=== PATIENT | male | born 1970 | race Caucasian/White ===

== ENCOUNTER → 2019-09-01 | Outpatient (CLI) | payer MEDICARE, OTHER ==
[~2019-09-01] MED LIST: FURO40 PO; HYDR25TA PO; LISI-662 PO; METO25 PO
== END | disposition home or self-care (01) ==
LOC: RADPV 11:28
PROVIDERS: ATTEND Podiatrist Foot & Ankle Surgery
DX: L97.529 Non-pressure chronic ulcer of other part of left foot with unspecified severity (principal); M19.072 Primary osteoarthritis, left ankle and foot; M77.32 Calcaneal spur, left foot; E11.9 Type 2 diabetes mellitus without complications

== ENCOUNTER → 2019-09-11 | Outpatient (CLI) | payer MEDICARE, OTHER | END | disposition home or self-care (01) | LOC: RADPV 09:13 | PROVIDERS: ATTEND Podiatrist Foot & Ankle Surgery | DX: I82.402 Acute embolism and thrombosis of unspecified deep veins of left lower extremity (principal); R60.0 Localized edema | CPT/HCPCS: 93971 ==

== ENCOUNTER → 2019-10-01 | Outpatient (CLI) | payer MEDICARE, OTHER ==
[2019-10-01 11:53] LABS: BASOPHILS % (AUTO) 0.6 % (0.0-2.0); EOSINOPHILS % (AUTO) 2.5 % (1.0-6.0); HEMATOCRIT 29.9 % (41-53); LYMPHOCYTES # (AUTO) 1.6 K/uL (1.0-4.8); LYMPHOCYTES % (AUTO) 14.7 % (22.0-44.0); MEAN CORPUSCULAR HEMOGLOBIN 28.7 pg (26.0-34.0); MEAN CORPUSCULAR HGB CONC 33.5 G/dL (31.0-37.0); MEAN CORPUSCULAR VOLUME 86 fL (80-100); MONOCYTES # (AUTO) 0.9 K/uL (0.1-1.0); MONOCYTES % (AUTO) 7.9 % (2.0-9.0); NEUTROPHILS % (AUTO) 74.3 % (40.0-70.0); PLATELET COUNT (AUTO) 202 K/uL (150-450); RED BLOOD CELL COUNT(AUTO) 3.49 MIL/uL (4.50-5.90); RED CELL DISTRIBUTION WIDTH 14.3 % (11.5-14.5)
[2019-10-01 13:36] LABS: ERYTHROCYTE SEDIMENTATION RATE 73 MM/HR (0-15)
== END | disposition home or self-care (01) ==
LOC: LABPV 10:22
PROVIDERS: ATTEND Podiatrist Foot & Ankle Surgery
DX: E11.40 Type 2 diabetes mellitus with diabetic neuropathy, unspecified (principal); L97.523 Non-pressure chronic ulcer of other part of left foot with necrosis of muscle
CPT/HCPCS: 85651

== ENCOUNTER → 2019-10-14 | Outpatient (CLI) | payer MEDICARE, OTHER ==
[~2019-10-14] MED LIST changes: +ALPR-340 PO; +AMLO10TA7 PO; +CALC0.25 PO; +CALC667C PO; +CHLO25TA3 PO; +FURO80 PO; +HYDR-1475 PO; +METO50 PO; +NIFE90TA49 PO; +ONDA-104 PO; +[UNRECOGNIZED DRUG - CODE] PO
== END | disposition home or self-care (01) ==
LOC: LABPV 11:03
PROVIDERS: ATTEND Internal Medicine Nephrology
DX: N18.5 Chronic kidney disease, stage 5 (principal); I51.7 Cardiomegaly

== ENCOUNTER 2019-11-17 05:53 | Day surgery (SDC) | payer MEDICARE, OTHER ==
[~2019-11-17] VITALS: Ht 180.3 cm; Wt 129.5 kg
[~2019-11-17 05:53] MED LIST changes: -ALPR-340 PO; -AMLO10TA7 PO; -CALC0.25 PO; -CALC667C PO; -CHLO25TA3 PO; +CYCLOPENTOLATE HCL 2% 2 ML OPHTHALMIC SOLUTION ONE; +DICLOFENAC SODIUM 0.1% 2.5 ML OPHTHALMIC SOLUTION ONE; -FURO80 PO; -HYDR-1475 PO; -METO50 PO; +MOXIFLOXACIN HCL 0.5% 3 ML OPHTHALMIC SOLUTION ONE; -NIFE90TA49 PO; -ONDA-104 PO; +PHENYLEPHRINE HCL 2.5% 2 ML OPHTHALMIC SOLUTION ONE; +RINGERS SOLUTION,LACTATED 0 ML IV ONE; +SODIUM CHLORIDE 0.9% 1,000 ML ONE; +TETRACAINE HCL/PF 0.5% 4 ML OPHTHALMIC SOLUTION ONE; -[UNRECOGNIZED DRUG - CODE] PO
[2019-11-17] MEDS ORDERED: ONDANSETRON HCL 4 MG/2 ML VIAL IVP ONE (05:54)
[2019-11-17] MEDS ORDERED: LIDOCAINE 1% 10 ML VIAL IM ONE (05:54)
[2019-11-17] MEDS ORDERED: 0.9% SODIUM CHLORIDE 10 ML VIAL IVP ONE (05:54)
[2019-11-17] MEDS ORDERED: MIDAZOLAM HCL 2 MG/2 ML VIAL IVP ONE (05:54)
[2019-11-17] MEDS ORDERED: SUCCINYLCHOLINE CHLORIDE 20 MG/ML 10 ML VIAL IVP ONE (05:54)
[2019-11-17] MEDS ORDERED: PROPOFOL 1% 20 ML VIAL IVP ONE (05:54)
[2019-11-17] MEDS ORDERED: FentaNYL CITRATE-PF 100 MCG/2 ML VIAL IVP ONE (05:54)
[2019-11-17] MEDS ORDERED: SODIUM CHLORIDE 0.9% 1,000 ML IV ONE (06:00)
[2019-11-17 06:12] LABS: BASOPHILS % (AUTO) 0.9 % (0.0-2.0); EOSINOPHILS % (AUTO) 1.7 % (1.0-6.0); HEMATOCRIT 31.5 % (41-53); HEMOGLOBIN 10.3 g/dL (13.5-17.5); LYMPHOCYTES # (AUTO) 1.7 K/uL (1.0-4.8); LYMPHOCYTES % (AUTO) 15.3 % (22.0-44.0); MEAN CORPUSCULAR HEMOGLOBIN 27.7 pg (26.0-34.0); MEAN CORPUSCULAR HGB CONC 32.7 G/dL (31.0-37.0); MEAN CORPUSCULAR VOLUME 85 fL (80-100); MONOCYTES # (AUTO) 0.8 K/uL (0.1-1.0); MONOCYTES % (AUTO) 7.3 % (2.0-9.0); NEUTROPHILS # (AUTO) 8.4 K/uL (1.8-7.7); NEUTROPHILS % (AUTO) 74.8 % (40.0-70.0); PLATELET COUNT (AUTO) 252 K/uL (150-450); RED BLOOD CELL COUNT(AUTO) 3.72 MIL/uL (4.50-5.90); RED CELL DISTRIBUTION WIDTH 15.1 % (11.5-14.5)
[2019-11-17 06:24] LABS: PROTHROMBIN TIME 10.5 SEC (9.4-11.6)
[2019-11-17 06:27] LABS: CALCIUM, TOTAL 8.4 mg/dL (8.8-10.5); CREATININE 5.81 mg/dL (0.60-1.30); POTASSIUM 4.3 mmol/L (3.5-5.1)
[2019-11-17] MEDS ORDERED: AMLO10TA7 PO (06:50)
[2019-11-17] MEDS ORDERED: LIDOCAINE/PF 1% 30 ML VIAL ONE (06:54)
[2019-11-17] MEDS ORDERED: BUPIVACAINE HCL/PF 0.5% 30 ML VIAL ONE (06:54)
[2019-11-17] MEDS ORDERED: GELATIN SPONGE,ABSORBABLE 100 MM TP ONE (07:36)
[2019-11-17] MEDS ORDERED: THROMBIN, BOVINE 20000 UNITS/VIAL POWDER TP ONE (07:37)
[2019-11-17] MEDS ORDERED: HYDROmorphone 2 MG/ML SYRINGE IVP PRN (07:45)
[2019-11-17] MEDS ORDERED: FentaNYL CITRATE-PF 100 MCG/2 ML VIAL IVP PRN (07:45)
[2019-11-17] MEDS ORDERED: MEPERIDINE-PF 25 MG/ML VIAL IVP PRN (07:45)
[2019-11-17] MEDS ORDERED: OXYGEN THERAPY IH SCH (08:00)
[2019-11-17] MEDS ORDERED: OxyCODONE HCL/ACETAMINOPHEN 5-325 MG TABLET PO ONE (08:00)
[2019-12-12] MEDS ORDERED: HYDR-1475 PO (13:16)
[2019-12-12] MEDS ORDERED: CALC667C PO (13:16)
[2019-12-12] MEDS ORDERED: ONDA-104 PO (13:16)
[2019-12-12] MEDS ORDERED: CALC0.25 PO (13:16)
[2019-12-12] MEDS ORDERED: METO50 PO (13:16)
[2019-12-12] MEDS ORDERED: [UNRECOGNIZED DRUG - CODE] PO (13:16)
[2019-12-12] MEDS ORDERED: FURO80 PO (13:16)
[2019-12-12] MEDS ORDERED: CHLO25TA3 PO (13:16)
[2019-12-12] MEDS ORDERED: ALPR-340 PO (13:16)
[2019-12-12] MEDS ORDERED: NIFE90TA49 PO (15:04)
[2019-12-17] MEDS ORDERED: LEVO500T2 PO (12:19)
[2019-12-17] MEDS ORDERED: B CO1CAP6 PO (12:20)
[2019-12-17] MEDS ORDERED: ACET-3207 PO (12:22)
== END 2019-11-17 09:20 | disposition home or self-care (01) ==
LOC: SURGERY 05:53
PROVIDERS: ATTEND Podiatrist Foot & Ankle Surgery
DX: E11.621 Type 2 diabetes mellitus with foot ulcer (principal); L97.523 Non-pressure chronic ulcer of other part of left foot with necrosis of muscle; D17.24 Benign lipomatous neoplasm of skin and subcutaneous tissue of left leg; I10 Essential (primary) hypertension; F41.9 Anxiety disorder, unspecified; F17.210 Nicotine dependence, cigarettes, uncomplicated; Z98.890 Other specified postprocedural states; Z72.89 Other problems related to lifestyle; Z99.2 Dependence on renal dialysis; Z79.01 Long term (current) use of anticoagulants
CPT/HCPCS: 28039; 36415; 80048; 85025; 85610; 85730; 87070; 87077; 87186; 87205; 88304; 93005; J0330; J0690; J2250; J2405; J2704; J3010; J3490 ×3; J7030; J7120

== ENCOUNTER → 2019-12-04 | Outpatient (CLI) | payer MEDICARE, OTHER ==
[~2019-12-04] MED LIST changes: +ACET-3207 PO; +ALPR-340 PO; +AMLO10TA7 PO; +B CO1CAP6 PO; +CALC0.25 PO; +CALC667C PO; +CHLO25TA3 PO; -CYCLOPENTOLATE HCL 2% 2 ML OPHTHALMIC SOLUTION ONE; -DICLOFENAC SODIUM 0.1% 2.5 ML OPHTHALMIC SOLUTION ONE; +FURO80 PO; +HYDR-1475 PO; +LEVO500T2 PO; -LISI-662 PO; +METO50 PO; -MOXIFLOXACIN HCL 0.5% 3 ML OPHTHALMIC SOLUTION ONE; +NIFE90TA49 PO; +ONDA-104 PO; -PHENYLEPHRINE HCL 2.5% 2 ML OPHTHALMIC SOLUTION ONE; -RINGERS SOLUTION,LACTATED 0 ML IV ONE; -SODIUM CHLORIDE 0.9% 1,000 ML ONE; -TETRACAINE HCL/PF 0.5% 4 ML OPHTHALMIC SOLUTION ONE; +[UNRECOGNIZED DRUG - CODE] PO
[2019-12-04 13:10] LABS: EOSINOPHILS % (AUTO) 1.5 % (1.0-6.0); HEMATOCRIT 34.7 % (41-53); HEMOGLOBIN 11.4 g/dL (13.5-17.5); LYMPHOCYTES # (AUTO) 2.1 K/uL (1.0-4.8); MEAN CORPUSCULAR HEMOGLOBIN 27.7 pg (26.0-34.0); MEAN CORPUSCULAR HGB CONC 32.7 G/dL (31.0-37.0); MEAN CORPUSCULAR VOLUME 85 fL (80-100); MONOCYTES # (AUTO) 0.8 K/uL (0.1-1.0); MONOCYTES % (AUTO) 7.6 % (2.0-9.0); NEUTROPHILS # (AUTO) 7.2 K/uL (1.8-7.7); NEUTROPHILS % (AUTO) 69.9 % (40.0-70.0); PLATELET COUNT (AUTO) 317 K/uL (150-450); RED BLOOD CELL COUNT(AUTO) 4.11 MIL/uL (4.50-5.90); RED CELL DISTRIBUTION WIDTH 15.7 % (11.5-14.5)
[2019-12-04 14:19] LABS: ERYTHROCYTE SEDIMENTATION RATE 72 MM/HR (0-15)
== END | disposition home or self-care (01) ==
LOC: MSR 12:20
PROVIDERS: ATTEND Podiatrist Foot & Ankle Surgery
DX: L97.523 Non-pressure chronic ulcer of other part of left foot with necrosis of muscle (principal); M79.89 Other specified soft tissue disorders; M19.072 Primary osteoarthritis, left ankle and foot; Z89.422 Acquired absence of other left toe(s)
CPT/HCPCS: 85651

== ENCOUNTER → 2020-01-14 | Outpatient (CLI) | payer MEDICARE, OTHER ==
[~2020-01-14] MED LIST changes: -AMLO10TA7 PO; -CHLO25TA3 PO; -FURO40 PO; -FURO80 PO; -HYDR-1475 PO; -HYDR25TA PO; -METO25 PO; -NIFE90TA49 PO; -[UNRECOGNIZED DRUG - CODE] PO
== END | disposition home or self-care (01) ==
LOC: RADPV 08:25
PROVIDERS: ATTEND Podiatrist Foot & Ankle Surgery
DX: M19.072 Primary osteoarthritis, left ankle and foot (principal); S98.132D Complete traumatic amputation of one left lesser toe, subsequent encounter; I70.202 Unspecified atherosclerosis of native arteries of extremities, left leg; M85.872 Other specified disorders of bone density and structure, left ankle and foot; M86.9 Osteomyelitis, unspecified; Z89.422 Acquired absence of other left toe(s); X58.XXXD Exposure to other specified factors, subsequent encounter

== ENCOUNTER → 2020-02-10 | Outpatient (CLI) | payer MEDICARE, OTHER ==
[~2020-02-10] MED LIST changes: +GADOBUTROL 1 MMOL/ML 10 ML VIAL IVP ONE
== END | disposition home or self-care (01) ==
LOC: RADMN 08:28
PROVIDERS: ATTEND Podiatrist Foot & Ankle Surgery
DX: M19.072 Primary osteoarthritis, left ankle and foot (principal); L97.429 Non-pressure chronic ulcer of left heel and midfoot with unspecified severity; M86.8X7 Other osteomyelitis, ankle and foot; M86.172 Other acute osteomyelitis, left ankle and foot; E11.22 Type 2 diabetes mellitus with diabetic chronic kidney disease; N18.6 End stage renal disease; E11.40 Type 2 diabetes mellitus with diabetic neuropathy, unspecified
CPT/HCPCS: 73720; A9585

== ENCOUNTER 2020-02-16 05:50 | Day surgery (SDC) | payer MEDICARE, OTHER ==
[2020-02-12 09:41] LABS: BASOPHILS % (AUTO) 0.6 % (0.0-2.0); EOSINOPHILS % (AUTO) 1.7 % (1.0-6.0); HEMATOCRIT 36.2 % (41-53); LYMPHOCYTES # (AUTO) 1.7 K/uL (1.0-4.8); LYMPHOCYTES % (AUTO) 16.5 % (22.0-44.0); MEAN CORPUSCULAR HEMOGLOBIN 29.8 pg (26.0-34.0); MEAN CORPUSCULAR HGB CONC 33.3 G/dL (31.0-37.0); MEAN CORPUSCULAR VOLUME 89 fL (80-100); MONOCYTES # (AUTO) 0.7 K/uL (0.1-1.0); MONOCYTES % (AUTO) 6.9 % (2.0-9.0); NEUTROPHILS # (AUTO) 7.8 K/uL (1.8-7.7); NEUTROPHILS % (AUTO) 74.3 % (40.0-70.0); PLATELET COUNT (AUTO) 194 K/uL (150-450); RED BLOOD CELL COUNT(AUTO) 4.04 MIL/uL (4.50-5.90); RED CELL DISTRIBUTION WIDTH 18.2 % (11.5-14.5)
[2020-02-12 09:56] LABS: PROTHROMBIN TIME 10.3 SEC (9.4-11.6)
[2020-02-12 10:02] LABS: CALCIUM, TOTAL 8.5 mg/dL (8.8-10.5); CREATININE 6.47 mg/dL (0.60-1.30); POTASSIUM 4.1 mmol/L (3.5-5.1)
[2020-02-12 11:21] LABS: GLUCOMETER DEV NAME(LOC) PVLAB.13
[~2020-02-16] VITALS: Ht 180.3 cm; Wt 126.4 kg
[~2020-02-16 05:50] MED LIST changes: -GADOBUTROL 1 MMOL/ML 10 ML VIAL IVP ONE; +SODIUM CHLORIDE 0.9% 1,000 ML IV ONE
[2020-02-16] MEDS ORDERED: SODIUM CHLORIDE 0.9% 1,000 ML ONE (05:58)
[2020-02-16] MEDS ORDERED: VANCOMYCIN HCL 1 GM/VIAL ONE (06:54)
[2020-02-16] MEDS ORDERED: BACITRACIN 50,000 UNITS/VIAL ONE (06:55)
[2020-02-16] MEDS ORDERED: LIDOCAINE/PF 1% 30 ML VIAL ONE (07:05)
[2020-02-16] MEDS ORDERED: BUPIVACAINE HCL/PF 0.5% 30 ML VIAL ONE (07:05)
[2020-02-16] MEDS ORDERED: SODIUM CL IRRIG SOLN BAG 3,000 ML IRRIG ONE (07:14)
[2020-02-16] MEDS ORDERED: MEPERIDINE-PF 25 MG/ML VIAL IVP PRN (07:45)
[2020-02-16] MEDS ORDERED: HYDROmorphone 2 MG/ML SYRINGE IVP PRN (07:45)
[2020-02-16] MEDS ORDERED: FentaNYL CITRATE-PF 100 MCG/2 ML VIAL IVP PRN (07:45)
[2020-02-16] MEDS ORDERED: OXYGEN THERAPY IH SCH (08:00)
[2020-02-16] MEDS ORDERED: GELATIN SPONGE,ABSORBABLE 50 MM TP ONE (08:37)
[2020-02-16] MEDS ORDERED: THROMBIN, BOVINE 20000 UNITS/VIAL POWDER TP ONE (08:40)
[2020-02-16] MEDS ORDERED: MIDAZOLAM HCL 2 MG/2 ML VIAL IVP ONE (12:00)
[2020-02-16] MEDS ORDERED: FentaNYL CITRATE-PF 100 MCG/2 ML VIAL IVP ONE (12:00)
[2020-02-16] MEDS ORDERED: PROPOFOL 1% 20 ML VIAL IVP ONE (12:00)
[2020-02-16] MEDS ORDERED: LIDOCAINE/PF 2% 5 ML SYRINGE IVP ONE (12:00)
== END 2020-02-16 11:20 | disposition home or self-care (01) ==
LOC: SURGERY 05:50
PROVIDERS: ATTEND Podiatrist Foot & Ankle Surgery
DX: M86.8X7 Other osteomyelitis, ankle and foot (principal); J45.909 Unspecified asthma, uncomplicated; E11.22 Type 2 diabetes mellitus with diabetic chronic kidney disease; I12.0 Hypertensive chronic kidney disease with stage 5 chronic kidney disease or end stage renal disease; N18.6 End stage renal disease; E11.40 Type 2 diabetes mellitus with diabetic neuropathy, unspecified; E66.01 Morbid (severe) obesity due to excess calories; Z68.38 Body mass index [BMI] 38.0-38.9, adult; Z79.899 Other long term (current) drug therapy; Z89.439 Acquired absence of unspecified foot; F17.290 Nicotine dependence, other tobacco product, uncomplicated; Z11.59 Encounter for screening for other viral diseases
CPT/HCPCS: 28122; 36415; 73630; 80048; 85025; 85610; 85730; 87070; 87077; 87186; 87205; 87635; 88305; 88311; 93005; J0690; J2250; J2704; J3010; J3370; J3490 ×4; J7030

== ENCOUNTER 2020-02-27 05:19 | Emergency (ER) | payer MEDICARE, OTHER ==
[~2020-02-27] VITALS: Ht 177.8 cm; Wt 126.0 kg
[~2020-02-27 05:19] MED LIST changes: -SODIUM CHLORIDE 0.9% 1,000 ML IV ONE
[2020-02-27] MEDS ORDERED: LIDOCAINE/PF 1% 30 ML VIAL ONE (06:34)
[2020-02-27] MEDS ORDERED: VANCOMYCIN HCL 1 GM/VIAL ONE (06:34)
[2020-02-27] MEDS ORDERED: BACITRACIN 50,000 UNITS/VIAL ONE (06:34)
[2020-02-27] MEDS ORDERED: BUPIVACAINE HCL/PF 0.25% 30 ML VIAL ONE (06:34)
[2020-02-27] MEDS ORDERED: SODIUM CHLORIDE 0.9% 1,000 ML ONE (06:48)
[2020-02-27] MEDS ORDERED: ACETAMINOPHEN 1000 MG/ISO-OSM 100 ML IV ONE (07:04)
[2020-02-27] MEDS ORDERED: PROPOFOL 1000 MG/ISO-OSM 100 ML IV ONE (07:05)
[2020-02-27 07:25] VITALS: BP 118/66
[2020-02-27] MEDS ORDERED: HYDROmorphone 2 MG/ML SYRINGE IVP PRN (08:15)
[2020-02-27] MEDS ORDERED: MEPERIDINE-PF 25 MG/ML VIAL IVP PRN (08:15)
[2020-02-27] MEDS ORDERED: FentaNYL CITRATE-PF 100 MCG/2 ML VIAL IVP PRN (08:15)
[2020-02-27] MEDS ORDERED: MIDAZOLAM HCL 2 MG/2 ML VIAL IVP ONE (12:00)
[2020-02-27] MEDS ORDERED: FentaNYL CITRATE-PF 100 MCG/2 ML VIAL IVP ONE (12:00)
[2020-02-27] MEDS ORDERED: ONDANSETRON HCL 4 MG/2 ML VIAL IVP ONE (12:00)
[2020-02-27] MEDS ORDERED: LIDOCAINE/PF 2% 5 ML SYRINGE IVP ONE (12:00)
[2020-02-27] MEDS ORDERED: OXYGEN THERAPY IH SCH (20:00)
== END 2020-02-27 07:37 | disposition home or self-care (01) ==
LOC: EMS 05:19
DX: Z03.818 Encounter for observation for suspected exposure to other biological agents ruled out (principal); L02.611 Cutaneous abscess of right foot
CPT/HCPCS: 87070; 87077; 87186; 87205; 87635; 99283; J0131; J2250; J2405; J2704; J3010; J3370; J3490 ×3; J7030

== ENCOUNTER → 2020-03-09 | Outpatient (CLI) | payer MEDICARE, OTHER ==
[2020-03-09 12:39] LABS: BASOPHILS % (AUTO) 0.7 % (0.0-2.0); EOSINOPHILS % (AUTO) 2.3 % (1.0-6.0); HEMATOCRIT 33.4 % (41-53); HEMOGLOBIN 11.3 g/dL (13.5-17.5); LYMPHOCYTES # (AUTO) 2.5 K/uL (1.0-4.8); MEAN CORPUSCULAR HEMOGLOBIN 31.2 pg (26.0-34.0); MEAN CORPUSCULAR HGB CONC 33.8 G/dL (31.0-37.0); MEAN CORPUSCULAR VOLUME 93 fL (80-100); MONOCYTES # (AUTO) 0.8 K/uL (0.1-1.0); MONOCYTES % (AUTO) 8.2 % (2.0-9.0); NEUTROPHILS # (AUTO) 6.4 K/uL (1.8-7.7); NEUTROPHILS % (AUTO) 63.8 % (40.0-70.0); PLATELET COUNT (AUTO) 203 K/uL (150-450); RED BLOOD CELL COUNT(AUTO) 3.61 MIL/uL (4.50-5.90); RED CELL DISTRIBUTION WIDTH 18.4 % (11.5-14.5)
[2020-03-09 13:42] LABS: ERYTHROCYTE SEDIMENTATION RATE 31 MM/HR (0-15)
== END | disposition home or self-care (01) ==
LOC: MSR 09:55
PROVIDERS: ATTEND Podiatrist Foot & Ankle Surgery
DX: M19.072 Primary osteoarthritis, left ankle and foot (principal); Z89.422 Acquired absence of other left toe(s)
CPT/HCPCS: 85651

== ENCOUNTER → 2020-04-05 | Outpatient (CLI) | payer MEDICARE, OTHER ==
[2020-04-05 13:48] LABS: BASOPHILS % (AUTO) 0.7 % (0.0-2.0); EOSINOPHILS % (AUTO) 1.1 % (1.0-6.0); HEMATOCRIT 35.7 % (41-53); LYMPHOCYTES # (AUTO) 1.9 K/uL (1.0-4.8); LYMPHOCYTES % (AUTO) 20.4 % (22.0-44.0); MEAN CORPUSCULAR HEMOGLOBIN 31.8 pg (26.0-34.0); MEAN CORPUSCULAR HGB CONC 33.7 G/dL (31.0-37.0); MEAN CORPUSCULAR VOLUME 94 fL (80-100); MONOCYTES # (AUTO) 0.7 K/uL (0.1-1.0); NEUTROPHILS # (AUTO) 6.4 K/uL (1.8-7.7); NEUTROPHILS % (AUTO) 69.8 % (40.0-70.0); PLATELET COUNT (AUTO) 202 K/uL (150-450); RED BLOOD CELL COUNT(AUTO) 3.78 MIL/uL (4.50-5.90); RED CELL DISTRIBUTION WIDTH 17.1 % (11.5-14.5)
[2020-04-05 15:34] LABS: ERYTHROCYTE SEDIMENTATION RATE 21 MM/HR (0-15)
== END | disposition home or self-care (01) ==
LOC: LABPV 11:03
PROVIDERS: ATTEND Podiatrist Foot & Ankle Surgery
DX: M86.8X7 Other osteomyelitis, ankle and foot (principal); M86.9 Osteomyelitis, unspecified
CPT/HCPCS: 85651

== ENCOUNTER 2020-08-23 11:42 | Emergency (ER) | payer MEDICARE, OTHER ==
[~2020-08-23] VITALS: Ht 180.3 cm; Wt 58.6 kg
[2020-08-23 12:25] VITALS: BP 160/96
[2020-08-23] MEDS ORDERED: ACETAMINOPHEN 500 MG TABLET PO ONE (12:45)
== END 2020-08-23 12:49 | disposition home or self-care (01) ==
LOC: EMS 11:44
DX: J06.9 Acute upper respiratory infection, unspecified (principal); Z20.828 Contact with and (suspected) exposure to other viral communicable diseases; F17.210 Nicotine dependence, cigarettes, uncomplicated; E11.9 Type 2 diabetes mellitus without complications; Z79.899 Other long term (current) drug therapy
CPT/HCPCS: 99283; U0003

== ENCOUNTER → 2021-04-21 | Outpatient (CLI) | payer MEDICARE, OTHER ==
[~2021-04-21] MED LIST changes: -ALPR-340 PO; +ALPR0.255 PO; +AMLO-258 PO; -CALC0.25 PO; +CALC25 PO; -CALC667C PO; -LEVO500T2 PO; +PHOSLOC PO
== END | disposition home or self-care (01) ==
LOC: RADPV 11:11
PROVIDERS: ATTEND Podiatrist Foot & Ankle Surgery
DX: M86.8X7 Other osteomyelitis, ankle and foot (principal); Z89.421 Acquired absence of other right toe(s)
CPT/HCPCS: 73630-TC

== ENCOUNTER → 2021-05-04 | Outpatient (CLI) | payer MEDICARE, OTHER ==
[2021-05-04 12:53] LABS: EOSINOPHILS % (AUTO) 1.7 % (1.0-6.0); HEMATOCRIT 27.9 % (41-53); HEMOGLOBIN 9.2 g/dL (13.5-17.5); LYMPHOCYTES # (AUTO) 0.9 K/uL (1.0-4.8); LYMPHOCYTES % (AUTO) 16.9 % (22.0-44.0); MEAN CORPUSCULAR HEMOGLOBIN 29.7 pg (26.0-34.0); MEAN CORPUSCULAR VOLUME 90 fL (80-100); MONOCYTES # (AUTO) 0.4 K/uL (0.1-1.0); MONOCYTES % (AUTO) 8.1 % (2.0-9.0); NEUTROPHILS # (AUTO) 3.9 K/uL (1.8-7.7); NEUTROPHILS % (AUTO) 72.3 % (40.0-70.0); PLATELET COUNT (AUTO) 162 K/uL (150-450); RED CELL DISTRIBUTION WIDTH 15.7 % (11.5-14.5)
[2021-05-04 13:02] LABS: CALCIUM, TOTAL 8.4 mg/dL (8.8-10.5); CREATININE 7.23 mg/dL (0.60-1.30); POTASSIUM 4.6 mmol/L (3.5-5.1)
[2021-05-04 13:57] LABS: ERYTHROCYTE SEDIMENTATION RATE 60 MM/HR (0-15)
== END | disposition home or self-care (01) ==
LOC: LABMN 12:22
PROVIDERS: ATTEND Podiatrist Foot & Ankle Surgery
DX: L97.519 Non-pressure chronic ulcer of other part of right foot with unspecified severity (principal); M86.9 Osteomyelitis, unspecified
CPT/HCPCS: 80048; 85025; 85651

== ENCOUNTER → 2021-06-01 | Outpatient (CLI) | payer MEDICARE, OTHER | END | disposition home or self-care (01) | LOC: RADMN 09:52 | PROVIDERS: ATTEND Podiatrist Foot & Ankle Surgery | DX: M13.871 Other specified arthritis, right ankle and foot (principal); L03.115 Cellulitis of right lower limb; M25.474 Effusion, right foot; M86.8X7 Other osteomyelitis, ankle and foot; Z89.421 Acquired absence of other right toe(s) | CPT/HCPCS: 73718 ==

== ENCOUNTER → 2021-07-13 | Outpatient (CLI) | payer MEDICARE, OTHER ==
[~2021-07-13] MED LIST changes: +CALC0.2521 PO; -CALC25 PO
[2021-07-13 09:44] LABS: BASOPHILS % (AUTO) 0.9 % (0.0-2.0); EOSINOPHILS % (AUTO) 3.4 % (1.0-6.0); HEMATOCRIT 32.9 % (41-53); HEMOGLOBIN 10.7 g/dL (13.5-17.5); LYMPHOCYTES # (AUTO) 1.4 K/uL (1.0-4.8); LYMPHOCYTES % (AUTO) 16.4 % (22.0-44.0); MEAN CORPUSCULAR HEMOGLOBIN 28.7 pg (26.0-34.0); MEAN CORPUSCULAR HGB CONC 32.5 G/dL (31.0-37.0); MEAN CORPUSCULAR VOLUME 88 fL (80-100); MONOCYTES # (AUTO) 0.6 K/uL (0.1-1.0); MONOCYTES % (AUTO) 6.6 % (2.0-9.0); NEUTROPHILS # (AUTO) 6.3 K/uL (1.8-7.7); NEUTROPHILS % (AUTO) 72.7 % (40.0-70.0); PLATELET COUNT (AUTO) 192 K/uL (150-450); RED BLOOD CELL COUNT(AUTO) 3.73 MIL/uL (4.50-5.90); RED CELL DISTRIBUTION WIDTH 15.2 % (11.5-14.5)
[2021-07-13 09:59] LABS: CALCIUM, TOTAL 8.4 mg/dL (8.8-10.5); CREATININE 11.34 mg/dL (0.60-1.30); POTASSIUM 5.8 mmol/L (3.5-5.1)
== END | disposition home or self-care (01) ==
LOC: RADMN 09:23
PROVIDERS: ATTEND Podiatrist Foot & Ankle Surgery
DX: R60.0 Localized edema (principal); M86.8X7 Other osteomyelitis, ankle and foot; L02.612 Cutaneous abscess of left foot
CPT/HCPCS: 73718; 73721; 80048; 85025